=== PATIENT | male | born 1960 | race Caucasian/White ===

== ENCOUNTER 2018-09-05 12:05 | Emergency (ER) | payer OTHER ==
[~2018-09-05] VITALS: Wt 78.7 kg
[2018-09-05] MEDS ORDERED: SOD CHLORIDE 0.9% 1,000 ML IV STA (15:38)
[2018-09-05] MEDS ORDERED: KETOROLAC 15 MG INJ IV STA (15:38)
--- NOTE | 2018-09-05 15:53 | ERD ---
ER Documentation Chief Complaint Chief Complaint L sided/ L groin pain x1mo worse past few days. No NVD. 'hernia?' HPI 58-year-old man complaining of worsening left lower quadrant abdominal pain. He states about 2 nights ago pain became severe and he has had increased bowel movements over the last few days usually with improvement in pain and cramping. He states for about 1 month he has had mild left lower abdominal pain and sw elling and he is concerned about a hernia because he was able to push the swelling back. He states the milder pain for 1 month is different from the pain he has had over the last 2 days. He denies hematuria or dysuria, no weight loss, no fevers or chills, no vomiting, no chest pain or shortness of breath. Patient denies blood per rectum or melena. Pain has been constant nonradiating and nonexertional ROS All systems reviewed and are negative except as per history of present illness. Medications Home Meds No Active Prescriptions or Reported Meds Allergies Allergies: Coded Allergies: Penicillins (Verified Allergy, Unknown, 09/05/18) PMhx/Soc History of Surgery: Yes (jaw surgery, tonscillectomy as child) Hx Alcohol Use: No Hx Substance Use: No Hx Tobacco Use: Yes (quit years ago) Smoking Status: Former smoker FmHx Family History: No diabetes Physical Exam Vitals Vital Signs Date Temp Pulse Resp B/P (MAP) Pulse Ox O2 O2 Flow FiO2 Time Delivery Rate 09/05/18 97.8 78 16 128/87 99 Room Air 16:28 (101) 09/05/18 97.1 77 16 147/84 95 12:16 (105) Physical Exam GENERAL: Well-developed, well-nourished, well-hydrated, in no apparent distress, looks nontoxic in appearance CARDIAC: Regular rate and rhythm, no murmurs rubs or gallops LUNGS: Clear bilaterally no wheezing crackles or stridor ABDOMEN: Soft nontender, no guarding, no rigidity, no rebound, no psoas sign no obturator sign. Normoactive bowel sounds SKIN: Warm and dry to touch, no abrasions, contusions, or hematomas, no lacerations, no ecchymosis, no target lesions, and without ulcers EXTREMITIES: No clubbing cyanosis or edema, calves are bilaterally symmetrical, no Homans sign, no popliteal cord sign. Distal pulses equal and bilateral PSYCH: Normal affect without agitation or irritability Result Diagram: 09/05/18 1602 09/05/18 1602 Results 24 hrs Laboratory Tests Test 09/05/18 15:35 09/05/18 16:02 Urine Color YELLOW Urine Clarity CLEAR Urine pH 6.0 Urine Specific [place] 1.015 Urine Ketones NEGATIVE mg/dL Urine Nitrite NEGATIVE mg/dL Urine Bilirubin NEGATIVE mg/dL Urine Urobilinogen NEGATIVE mg/dL Urine Leukocyte Esterase NEGATIVE Star/ul Urine Hemoglobin NEGATIVE mg/dL Urine Glucose NEGATIVE mg/dL Urine Total Protein NEGATIVE mg/dl White Blood Count 10.6 10^3/ul Red Blood Count 5.09 10^6/ul Hemoglobin 15.3 g/dl Hematocrit 44.5 % Mean Corpuscular Volume 87.4 fl Mean Corpuscular Hemoglobin 30.1 pg Mean Corpuscular Hemoglobin Concent 34.4 g/dl Red Cell Distribution Width 12.3 % Platelet Count 233 10^3/UL Mean Platelet Volume 10.6 fl Immature Granulocytes % 0.200 % Neutrophils % 71.6 % Lymphocytes % 19.2 % Monocytes % 8.1 % Eosinophils % 0.7 % Basophils % 0.2 % Nucleated Red Blood Cells % 0.0 /100WBC Immature Granulocytes # 0.020 10^3/ul Neutrophils # 7.6 10^3/ul Lymphocytes # 2.0 10^3/ul Monocytes # 0.9 10^3/ul Eosinophils # 0.1 10^3/ul Basophils # 0.0 10^3/ul Nucleated Red Blood Cells # 0.0 10^3/ul Sodium Level 142 mmol/L Potassium Level 3.9 mmol/L Chloride Level 106 mmol/L Carbon Dioxide Level 28 mmol/L Anion Gap 8 Blood Urea Nitrogen 11 mg/dl Creatinine 0.84 mg/dl Est Glomerular Filtrat Rate mL/min > 60 mL/min Glucose Level 108 mg/dl Calcium Level 9.2 mg/dl Total Bilirubin 0.8 mg/dl Direct Bilirubin 0.00 mg/dl Indirect Bilirubin 0.8 mg/dl Aspartate Amino Transf (AST/SGOT) 34 IU/L Alanine Aminotransferase (ALT/SGPT) 32 IU/L Alkaline Phosphatase 62 IU/L Total Protein 7.5 g/dl Albumin 4.3 g/dl Globulin 3.20 g/dl Albumin/Globulin Ratio 1.34 Lipase 34 U/L Current Medications Medications Dose Sig/Koffi Start Time Status Last (Trade) Ordered Route PRN Stop Time Admin Dose Reason Admin Sodium 1,000 ml @ Q1H STAT 09/05/18 DC 09/05/18 Chloride 1,000 mls/hr IV 15:38 09/05/18 16:00 16:37 Ketorolac 15 mg ONCE STAT 09/05/18 DC Tromethamine IV 15:38 09/05/18 (Toradol) 15:39 Procedures/MDM IV line was established patient was placed on cardiac tech rhythm strip revealed a sinus rhythm at about 80 bpm with upright P and T waves. Patient was afebrile I administered 1 L normal saline IV, Toradol 15 mg IV. For continued pain I administered hydromorphone [address] scan of the abdomen pelvis was performed that was unremarkable, please refer to radiologist dictation for full report. CBC and electrolytes were within normal limits, liver function test normal IMPRESSION: 1. Acute diverticulitis involving the distal descending colon. Small focus of adjacent gas which appears to be extraluminal in the region of the inflamed colon suggesting possible associated contained microperforation versus gas within an ill-defined diverticulum. No evidence of abscess. 2. Large left adrenal cystic mass which may represent an epithelial cyst, endothelial cyst, or pseudocyst. 3. Small fat-containing umbilical hernia. 4. 1 cm hypodense left renal cortical lesion, too small to characterize but likely representing a cyst. 5. Small left inguinal hernia containing fat and a non inflamed sigmoid diverticulum. 6. Small hiatal hernia. 7. Bilateral lower lobe bronchiectasis with scarring. I spoke to surgeon air sampling and monitoring Dr. Quiles regarding the patient's presentation, symptomatology, CT scan findings. At this time he feels the issue was nonsurgical although he agreed to consult the patient after admission. Patient admitted to [facility]. Departure Diagnosis: Primary Impression: Diverticulitis large intestine Diverticulitis bleeding: without bleeding Diverticulitis complication: with perforation Qualified Codes: K57.20 - Diverticulitis of large intestine with perforation and abscess without bleeding Additional Impression: Large bowel perforation Condition: CLAIRE Lee MD Sep 05, 2018 15:52
[2018-09-05] MEDS ORDERED: HYDROmorphONE 0.5 MG/0.5 ML SYG IV STA (17:54)
[2018-09-05] MEDS ORDERED: PIPER-TAZO 3.375 GM IV (PMX) 100 ML IVPB ONE (18:00)
[2018-09-05] MEDS ORDERED: LEVO750T25 PO (18:28)
[2018-09-05] MEDS ORDERED: METR500T PO (18:28)
[2018-09-05] MEDS ORDERED: IBUP-1542 PO (18:28)
[2018-09-05 19:03] VITALS: BP 122/70; PULSE 74; RESP 16
== END 2018-09-05 19:03 | disposition left against medical advice (07) ==
LOC: E/R 12:05 → CANBEDREQ 20:00
DX: K57.20 Diverticulitis of large intestine with perforation and abscess without bleeding (principal); Z87.891 Personal history of nicotine dependence
CPT/HCPCS: 74176; 80053; 81003; 83690; 85025; J1885; J2543; J7030; 36415; 96374